=== PATIENT | male | born 1940 ===

== ENCOUNTER 2016-10-05 11:15 | Inpatient (IN) | payer OTHER ==
[~2016-10-05] VITALS: Ht 172.7 cm; Wt 99.6 kg
[2016-10-05] MEDS ORDERED: cefTRIAXone 1GM/50ML D5W 50 ML IV ONE (13:15)
[2016-10-05] MEDS ORDERED: ALBUTEROL SULF 2.5 MG/0.5ML(0.5%) NEB SOLN HHN ONE (13:15)
[2016-10-05] MEDS ORDERED: IPRATROPIUM BROM 0.5 MG/2.5ML INH SOL HHN ONE (13:15)
[2016-10-05] MEDS ORDERED: methylPREDNISolone SOD SUCC 125 MG/2 ML VL IV ONE (13:15)
[2016-10-05 13:35] LABS: Basophils # (auto) 0 uL; Basophils % (auto) 0.4 % (0.0-2.0); CONDITION Y; DEFINITIVE SEE PRINTOUT; Eosinophils # (auto) 1.5 uL; Eosinophils % (auto) 17.7 % (0.0-7.0); Hematocrit 39.2 % (41.0-53.0); Hemoglobin 13.5 g/dL (13.5-17.5); Lymphocytes # (auto) 1.2 uL; Lymphocytes % (auto) 13.8 % (10.0-50.0); Mean Corpuscular Hgb Conc. 34.5 g/dL (32.0-36.0); Mean Platelet Volume 9.3 fL (7.4-10.4); Monocytes # (auto) 0.8 uL; Monocytes % (auto) 9.4 % (0.0-12.0); Neutrophils # (auto) 5.1 uL; Neutrophils % (auto) 58.7 % (37.0-80.0); Platelet Count (auto) 276 10^3/uL (140-450); Red Cell Distribution Width 14.1 % (11.6-16.0); White Blood Cell 8.7 10^3/uL (4.4-10.8)
[2016-10-05 14:05] LABS: Albumin 3.1 g/dL (3.4-5.0); Anion Gap 7 (5-15); Aspartate Aminotransferase 11 U/L (15-37); BUN/Creatinine Ratio 17.7; Blood Urea Nitrogen 17 mg/dL (7-18); Calcium 7.4 mg/dL (8.5-10.1); Carbon Dioxide 31 mmol/L (21-32); Chloride 103 mmol/L (98-107); GFR African American 98 mL/min; GFR Non-African American 81 mL/min; Glucose 103 mg/dL (74-106); Magnesium 1.3 mg/dL (1.6-2.6); Potassium 3.9 mmol/L (3.5-5.1); Sodium 141 mmol/L (136-145)
[2016-10-05 14:09] LABS: Alkaline Phosphatase 72 U/L (45-117); Bilirubin, Total 0.4 mg/dL (0.2-1.0)
[2016-10-05 14:13] LABS: B-Type Natriuretic Peptide 78.73 pg/mL (0-100)
[2016-10-05 14:24] LABS: Temperature: 22.1 C (20.0-25.0)
[2016-10-05] MEDS: MAGNESIUM SULFATE 1GM/100ML 100 ML IV SCH ×2 (16:40→18:33)
[2016-10-05] MEDS ORDERED: LORazepam 0.5 MG TAB PO PRN (17:15)
[2016-10-05] MEDS ORDERED: ACETAMINOPHEN 500 MG TAB PO PRN (17:15)
[2016-10-05] MEDS ORDERED: NITROGLYCERIN 0.4 MG SL TAB SL PRN (17:15)
[2016-10-05] MEDS ORDERED: ALBUTEROL SULF 2.5 MG/0.5ML(0.5%) NEB SOLN NEB PRN (17:15)
[2016-10-05] MEDS ORDERED: MORPHINE SULFATE 4 MG/ML SYRG IV PRN (17:15)
[2016-10-05] MEDS ORDERED: TEMAZEPAM 15 MG CAP PO PRN (17:15)
[2016-10-05] MEDS ORDERED: PROMETHAZINE HCL 25 MG/ML 1ML IV PRN (17:15)
[2016-10-05] MEDS ORDERED: HYDROcodone-ACET 5/325MG TAB PO PRN (17:15)
[2016-10-05] MEDS ORDERED: MORPHINE SULF INJ 2 MG/ML SYRINGE 1ML IV PRN (17:15)
[2016-10-05] MEDS ORDERED: LACTULOSE 20Gm/30ML SOLN PO PRN (17:15)
[2016-10-05] MEDS ORDERED: DOXYCYCLINE HYC 100MG/250ML 250 ML IV SCH (17:30)
[2016-10-05] MEDS: NITROGLYCERIN 0.2MG/HR TOPICAL PATCH TD SCH (18:23)
[2016-10-05] MEDS: methylPREDNISolone SOD SUCC 40 MG/ML VL IV SCH ×2 (18:24→23:35)
[2016-10-05] MEDS: ALBUTEROL SULF 2.5 MG/0.5ML(0.5%) NEB SOLN NEB SCH (19:30)
[2016-10-05] MEDS: IPRATROPIUM BROM 0.5 MG/2.5ML INH SOL NEB SCH (19:30)
[2016-10-05] MEDS ORDERED: LEVOFLOXACIN 500MG 100 ML IV ONE (21:30)
[2016-10-05 21:35] LABS: Urine Bilirubin Negative (Negative); Urine Blood Negative /uL (Negative); Urine Color Yellow (Yellow); Urine Glucose Normal (Normal); Urine Ketone TRACE (Negative); Urine Nitrite Negative (Negative); Urine RBC 1 /hpf (0 - 3); Urine Urobilinogen Normal (Negative)
[2016-10-05 21:47] VITALS: BP 132/71
[2016-10-05] MEDS: SODIUM CHLOR 0.9% PF (SALINE LOCK) 10ML VIAL IV SCH (22:00)
[2016-10-05] MEDS ORDERED: ATOR10TA PO (22:33)
[2016-10-05] MEDS ORDERED: ASPI81CH43 PO (22:33)
[2016-10-05] MEDS ORDERED: VALS40TA2 PO (22:33)
[2016-10-05] MEDS ORDERED: DUTACAP PO (22:33)
[2016-10-05] MEDS ORDERED: TICA90TA PO (22:33)
[2016-10-05] MEDS ORDERED: DIVA250T51 PO (22:33)
[2016-10-05] MEDS ORDERED: LORA-655 PO (22:33)
[2016-10-06] MEDS: ALBUTEROL SULF 2.5 MG/0.5ML(0.5%) NEB SOLN NEB SCH ×4 (00:32→20:04)
[2016-10-06] MEDS: IPRATROPIUM BROM 0.5 MG/2.5ML INH SOL NEB SCH ×4 (00:32→20:04)
[2016-10-06 02:00] VITALS: BP 157/108
[2016-10-06 04:33] LABS: Basophils # (auto) 0 uL; CONDITION Y; Eosinophils # (auto) 0 uL; Eosinophils % (auto) 0.1 % (0.0-7.0); Lymphocytes # (auto) 0.5 uL; Lymphocytes % (auto) 6.3 % (10.0-50.0); Mean Corpuscular Hemoglobin 30.6 pg (28.0-32.0); Mean Corpuscular Hgb Conc. 33.3 g/dL (32.0-36.0); Mean Corpuscular Volume 91.7 fL (80.0-100.0); Mean Platelet Volume 9.9 fL (7.4-10.4); Monocytes # (auto) 0 uL; Monocytes % (auto) 0.6 % (0.0-12.0); Neutrophils # (auto) 6.7 uL; Platelet Count (auto) 275 10^3/uL (140-450); Red Cell Distribution Width 13.8 % (11.6-16.0); SUSPECT SEE PRINTOUT; White Blood Cell 7.2 10^3/uL (4.4-10.8)
[2016-10-06 04:55] LABS: B-Type Natriuretic Peptide 168.83 pg/mL (0-100)
[2016-10-06 04:58] LABS: Albumin 3.1 g/dL (3.4-5.0); BUN/Creatinine Ratio 17.3; Bilirubin, Total 0.4 mg/dL (0.2-1.0); Calcium 7.9 mg/dL (8.5-10.1); Potassium 3.6 mmol/L (3.5-5.1); Total Protein 7.2 g/dL (6.4-8.2)
[2016-10-06 05:00] LABS: Temperature: 22.5 C (20.0-25.0)
[2016-10-06] MEDS: SODIUM CHLOR 0.9% PF (SALINE LOCK) 10ML VIAL IV SCH ×3 (05:31→21:50)
[2016-10-06] MEDS: methylPREDNISolone SOD SUCC 40 MG/ML VL IV SCH ×3 (05:31→18:17)
[2016-10-06 05:33] VITALS: BP 132/65
[2016-10-06] MEDS ORDERED: FUROSEMIDE 40 MG/4 ML VIAL IV SCH (10:00)
[2016-10-06] MEDS: NITROGLYCERIN 0.2MG/HR TOPICAL PATCH TD SCH (10:00)
[2016-10-06 10:14] VITALS: BP 137/70
[2016-10-06] MEDS: LEVOFLOXACIN 500MG 100 ML IV SCH (11:18)
[2016-10-06] MEDS: ENALAPRIL MALEATE 2.5 MG TAB PO SCH (11:19)
[2016-10-06] MEDS: ASPirin 81 mg TAB PO SCH (11:19)
[2016-10-06] MEDS: POTASSIUM CHL 20 Meq TABLET PO SCH (11:19)
[2016-10-06] MEDS: PANTOPRAZOLE 40 MG TAB PO SCH (11:19)
[2016-10-06] MEDS ORDERED: guaiFENesin-DEXTROMETHORPHAN 5ML SYR PO PRN (12:00)
[2016-10-06 13:00] VITALS: BP 144/74
[2016-10-06 17:42] VITALS: BP 129/76
[2016-10-06] MEDS: FUROSEMIDE 40 MG/4 ML VIAL IV SCH (18:17)
[2016-10-06] MEDS ORDERED: TICAGRELOR 90 MG TAB PO ONE (21:00)
[2016-10-06 22:00] VITALS: BP 151/71
[2016-10-07] MEDS: methylPREDNISolone SOD SUCC 40 MG/ML VL IV SCH ×3 (00:03→13:17)
[2016-10-07] MEDS: IPRATROPIUM BROM 0.5 MG/2.5ML INH SOL NEB SCH ×3 (00:30→12:07)
[2016-10-07] MEDS: ALBUTEROL SULF 2.5 MG/0.5ML(0.5%) NEB SOLN NEB SCH ×3 (00:30→12:07)
[2016-10-07 05:00] VITALS: BP 136/85
[2016-10-07 05:26] LABS: Calcium 8.5 mg/dL (8.5-10.1); Potassium 3.8 mmol/L (3.5-5.1)
[2016-10-07 05:33] LABS: Magnesium 1.8 mg/dL (1.6-2.6)
[2016-10-07 05:50] LABS: Basophils # (auto) 0 uL; CONDITION Y; Eosinophils # (auto) 0 uL; Hematocrit 41.8 % (41.0-53.0); Lymphocytes # (auto) 0.4 uL; Lymphocytes % (auto) 2.6 % (10.0-50.0); Mean Corpuscular Hemoglobin 30.7 pg (28.0-32.0); Mean Corpuscular Hgb Conc. 33.6 g/dL (32.0-36.0); Mean Corpuscular Volume 91.4 fL (80.0-100.0); Mean Platelet Volume 9.6 fL (7.4-10.4); Monocytes # (auto) 0.4 uL; Monocytes % (auto) 2.6 % (0.0-12.0); Neutrophils # (auto) 14.4 uL; Neutrophils % (auto) 94.8 % (37.0-80.0); Platelet Count (auto) 353 10^3/uL (140-450); Red Cell Distribution Width 14.4 % (11.6-16.0); White Blood Cell 15.2 10^3/uL (4.4-10.8)
[2016-10-07] MEDS: FUROSEMIDE 40 MG/4 ML VIAL IV SCH (05:52)
[2016-10-07] MEDS: SODIUM CHLOR 0.9% PF (SALINE LOCK) 10ML VIAL IV SCH ×2 (05:53→14:06)
[2016-10-07 08:00] VITALS: BP 128/82
[2016-10-07 09:49] VITALS: BP 128/82
[2016-10-07] MEDS ORDERED: DUTASTERIDE TAMSULOSIN HCL PO SCH (10:00)
[2016-10-07] MEDS ORDERED: TICAGRELOR 90 MG TAB PO SCH (10:00)
[2016-10-07] MEDS: NITROGLYCERIN 0.2MG/HR TOPICAL PATCH TD SCH (10:00)
[2016-10-07] MEDS: LEVOFLOXACIN 500MG 100 ML IV SCH (10:25)
[2016-10-07] MEDS: POTASSIUM CHL 20 Meq TABLET PO SCH (10:25)
[2016-10-07] MEDS: PANTOPRAZOLE 40 MG TAB PO SCH (10:26)
[2016-10-07] MEDS: ASPirin 81 mg TAB PO SCH (10:27)
[2016-10-07] MEDS: ENALAPRIL MALEATE 2.5 MG TAB PO SCH (10:27)
[2016-10-07 13:16] VITALS: BP 139/85
[2016-10-07 15:02] VITALS: BP 128/82
== END 2016-10-07 18:36 | disposition home health service (06) | DRG 291 ==
LOC: ER 11:20 → TELE 11:21 → TELE-WESTW 10-06 00:44
PROVIDERS: ADMIT Internal Medicine; ATTEND Internal Medicine
DX: I11.0 Hypertensive heart disease with heart failure (principal); J96.20 Acute and chronic respiratory failure, unspecified whether with hypoxia or hypercapnia; Z99.81 Dependence on supplemental oxygen; J44.1 Chronic obstructive pulmonary disease with (acute) exacerbation; I50.43 Acute on chronic combined systolic (congestive) and diastolic (congestive) heart failure; E83.42 Hypomagnesemia; E78.5 Hyperlipidemia, unspecified; I25.10 Atherosclerotic heart disease of native coronary artery without angina pectoris; I45.10 Unspecified right bundle-branch block; E11.9 Type 2 diabetes mellitus without complications; E03.9 Hypothyroidism, unspecified; E66.9 Obesity, unspecified; F17.210 Nicotine dependence, cigarettes, uncomplicated; N40.0 Benign prostatic hyperplasia without lower urinary tract symptoms; R94.6 Abnormal results of thyroid function studies; Z95.1 Presence of aortocoronary bypass graft; Z68.33 Body mass index [BMI] 33.0-33.9, adult; Z82.49 Family history of ischemic heart disease and other diseases of the circulatory system
CPT/HCPCS: 36415; 71010; 80048; 80053; 80061; 81001; 82550; 83605; 83735; 83880; 84443; 84484; 85025; 87040; 87070; 87205; 93005; 93306; 94640; 94761; 96365; 96375; J0696; J1956; J3490